=== PATIENT | female | born 1960 | race Caucasian/White ===

== ENCOUNTER 2018-12-07 06:58 | Day surgery (SDC) | payer OTHER ==
[2018-12-07] MEDS ORDERED: PROPOFOL 60 ML (08:23)
[2018-12-07] MEDS ORDERED: LIDOCAINE 2% (SDV) 5 ML INJ (08:23)
[2018-12-07] MEDS ORDERED: FENTAnyl 50 MCG/ML VIAL IV (08:30)
[2018-12-07] MEDS ORDERED: ACETAMINOPHEN 500 MG TAB PO (08:30)
[2018-12-07] MEDS ORDERED: ONDANSETRON 4 MG INJ IV (08:30)
[2018-12-07] MEDS ORDERED: ALBUTEROL 0.083% (NEB) 2.5 MG/3 ML AMP HHN (08:30)
[2018-12-07] MEDS ORDERED: PHENYLephrine (100 MCG/ML) 10ML SYG (11:29)
== END 2018-12-07 12:50 | disposition home or self-care (01) ==
LOC: GIL 06:58
DX: Z12.11 Encounter for screening for malignant neoplasm of colon (principal); K29.50 Unspecified chronic gastritis without bleeding; K31.9 Disease of stomach and duodenum, unspecified; I10 Essential (primary) hypertension; K64.4 Residual hemorrhoidal skin tags; K64.8 Other hemorrhoids; K57.31 Diverticulosis of large intestine without perforation or abscess with bleeding
CPT/HCPCS: 43239; 88305; 88312